=== PATIENT | female | born 1935 | race Two or more races ===

== ENCOUNTER 2017-03-08 14:05 | Outpatient (CLI) | payer MEDICARE, BC | END 2017-03-09 23:59 | disposition home or self-care (01) | LOC: RAD 14:05 | PROVIDERS: ATTEND Surgery | DX: Z01.818 Encounter for other preprocedural examination (principal); I70.0 Atherosclerosis of aorta | CPT/HCPCS: 71046 ==

== ENCOUNTER 2017-03-15 07:38 | Day surgery (SDC) | payer MEDICARE, BC | END 2017-03-15 11:00 | disposition home or self-care (01) | LOC: DS 07:38 | PROVIDERS: ATTEND Surgery | DX: K57.30 Diverticulosis of large intestine without perforation or abscess without bleeding (principal); K29.60 Other gastritis without bleeding; K44.9 Diaphragmatic hernia without obstruction or gangrene; K29.80 Duodenitis without bleeding; E11.9 Type 2 diabetes mellitus without complications; I10 Essential (primary) hypertension; Z86.73 Personal history of transient ischemic attack (TIA), and cerebral infarction without residual deficits; Z90.49 Acquired absence of other specified parts of digestive tract; Z98.51 Tubal ligation status; Z86.010 Personal history of colon polyps; E66.9 Obesity, unspecified | CPT/HCPCS: 82962-TC; 88305-TC; 88313-TC; 88342; J2704; J7120; Z7610 ==

== ENCOUNTER 2019-09-21 12:26 | Outpatient (CLI) | payer MEDICARE, BC | END 2019-09-21 23:59 | disposition home or self-care (01) | LOC: RAD 12:26 | PROVIDERS: ATTEND Surgery | DX: S09.90XA Unspecified injury of head, initial encounter (principal); S00.03XA Contusion of scalp, initial encounter; J32.0 Chronic maxillary sinusitis; X58.XXXA Exposure to other specified factors, initial encounter; Y93.89 Activity, other specified; Y92.89 Other specified places as the place of occurrence of the external cause; Y99.8 Other external cause status | CPT/HCPCS: 70551-TC ==